=== PATIENT | male | born 1995 | race Two or more races ===

== ENCOUNTER 2020-05-31 23:40 | Emergency (ER) | payer OTHER ==
[~2020-05-31] VITALS: Ht 172.7 cm; Wt 61.2 kg
[2020-05-31 23:40] VITALS: BP 114/72
--- NOTE | 2020-05-31 23:57 | NUR ---
PATIENT CAME TO ER BED 9 C/O POSTERIOR MEDIAL NECK PAIN SINCE 2 WEEKS THAT HAS BEEN GRADUALLY WORSENING. PATIENT STATES THAT HE WOKE UP TODAY AND HAD STIFF NECK, LIMITED RANGE OF MOTION. PATIENT IS AAOX4. NO SOB. BREATHING EVENLY AND UNLABORED ON ROOM AIR.
--- NOTE | 2020-06-01 00:52 | NUR ---
Patient discharged to home in stable condition. Written and verbal after care instructions given. Patient verbalizes understanding of instruction.
== END 2020-06-01 00:53 | disposition home or self-care (01) ==
LOC: ER 23:46
DX: M62.838 Other muscle spasm (principal); M54.2 Cervicalgia; Z88.0 Allergy status to penicillin
CPT/HCPCS: 72125-TC